=== PATIENT | male | born 1960 | race Caucasian/White ===

== ENCOUNTER 2016-09-25 12:26 | Emergency (ER) | payer OTHER ==
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
--- NOTE | 2016-09-25 13:45 | RADIOLOGY REPORT ---
Four views of the left knee demonstrate probable unfused accessory ossicle at the tibial tubercle. No displaced fracture, subluxation or other abnormality is identified. The visualized joints appear unremarkable. IMPRESSION: Probable unfused accessory ossicle at the tibial tubercle. If clinically indicated, further evaluation with CT scanning may be of benefit. The findings were personally reviewed with Dr. Dey upon completion of the examination. KAJAL
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
== END 2016-09-25 14:24 | disposition home or self-care (01) ==
LOC: ER 12:26
DX: S80.02XA Contusion of left knee, initial encounter (principal); M23.92 Unspecified internal derangement of left knee; S60.511A Abrasion of right hand, initial encounter; S60.512A Abrasion of left hand, initial encounter; S80.212A Abrasion, left knee, initial encounter; V86.59XA Driver of other special all-terrain or other off-road motor vehicle injured in nontraffic accident, initial encounter; Y92.838 Other recreation area as the place of occurrence of the external cause; Z79.82 Long term (current) use of aspirin
CPT/HCPCS: 73700; 99284